=== PATIENT | female | born 1970 | race Caucasian/White ===

== ENCOUNTER 2022-04-13 08:58 | Day surgery (SDC) | payer BC ==
[~2022-04-13 08:58] MED LIST: Lactated Ringers 1,000 ML IV SCH; Propofol 200 MG/20 ML SDV ONE; Sodium Chloride 0.9% 10 ML Syringe FLUSH PRN; Sodium Chloride 0.9% 2.5 ML Syringe FLUSH PRN; Sodium Chloride 0.9% 20 ML SDV IV PRN
[2022-04-13] MEDS ORDERED: Midazolam 1 MG/ML 2 ML SDV ONE (10:41)
[2022-04-13] MEDS ORDERED: Propofol 200 MG/20 ML SDV ONE (11:18)
== END 2022-04-13 12:20 | disposition home or self-care (01) ==
LOC: MW.SDS 08:58
PROVIDERS: ATTEND Surgery
DX: Z12.11 Encounter for screening for malignant neoplasm of colon (principal); D01.3 Carcinoma in situ of anus and anal canal; K57.30 Diverticulosis of large intestine without perforation or abscess without bleeding; K44.9 Diaphragmatic hernia without obstruction or gangrene; G43.909 Migraine, unspecified, not intractable, without status migrainosus; F32.A Depression, unspecified; G89.29 Other chronic pain; Z88.2 Allergy status to sulfonamides; Z91.018 Allergy to other foods; Z79.899 Other long term (current) drug therapy; Z98.890 Other specified postprocedural states
CPT/HCPCS: 43239; 45380; J2250; J2704; J7120

== ENCOUNTER 2022-04-22 08:16 | Day surgery (SDC) | payer BC ==
[~2022-04-22 08:16] MED LIST changes: +Albuterol 0.083% 2.5 MG/3 ML Neb Soln NEB PRN; +HYDROmorphone 1 MG/ML Syringe IVPUSH PRN; -Lactated Ringers 1,000 ML IV SCH; +Metoclopramide 10 MG/2 ML SDV IVPUSH PRN; +Morphine 2 MG/ML SYRINGE IVPUSH PRN; +Naloxone 0.4 MG/ML SDV IVPUSH PRN; +Ondansetron 4 MG/2 ML SDV IVPUSH PRN; -Propofol 200 MG/20 ML SDV ONE; -Sodium Chloride 0.9% 10 ML Syringe FLUSH PRN; -Sodium Chloride 0.9% 2.5 ML Syringe FLUSH PRN; -Sodium Chloride 0.9% 20 ML SDV IV PRN; +fentaNYL 50 MCG/ML SDV IVPUSH PRN
[2022-04-22] MEDS ORDERED: Lactated Ringers 1,000 ML IV SCH (08:30)
[2022-04-22] MEDS ORDERED: Ondansetron 4 MG/2 ML SDV ONE (09:03)
[2022-04-22] MEDS ORDERED: Dexamethasone 4 MG/ML 5 ML MDV ONE (09:03)
[2022-04-22] MEDS ORDERED: Ketorolac 30 MG/ML SDV ONE (09:03)
[2022-04-22] MEDS ORDERED: Dexmedetomidine 200 MCG/2 ML SDV ONE (09:03)
[2022-04-22] MEDS ORDERED: Water For Injection, Sterile 20 ML ONE (09:03)
[2022-04-22] MEDS ORDERED: Lidocaine 2% 5 ML SDV ONE (09:03)
[2022-04-22] MEDS ORDERED: Magnesium Sulfate (4.06 MEQ/ML) 5 GM/10 ML SDV ONE (09:03)
[2022-04-22] MEDS ORDERED: fentaNYL 100 MCG/2 ML SDV ONE (09:06)
[2022-04-22] MEDS ORDERED: Propofol 200 MG/20 ML SDV ONE (09:06)
[2022-04-22] MEDS ORDERED: Bupivacaine 0.5% 30 ML SDV ONE (09:13)
[2022-04-22] MEDS ORDERED: Lidocaine 1% 20 ML MDV ONE (09:14)
[2022-04-22] MEDS ORDERED: cefOXitin 1 GM Vial ONE (09:49)
[2022-04-22] MEDS ORDERED: Lidocaine 2% 11 ML Jelly Filled Syringe ONE (10:24)
[2022-04-22] MEDS ORDERED: Phenylephrine 1% 10 MG/ML SDV ONE (10:55)
[2022-04-22] MEDS ORDERED: ePHEDrine 50 MG/ML SDV ONE (10:55)
== END 2022-04-22 11:50 | disposition home or self-care (01) ==
LOC: MW.SDS 08:16
PROVIDERS: ATTEND Surgery
DX: K62.82 Dysplasia of anus (principal); K44.9 Diaphragmatic hernia without obstruction or gangrene; K21.9 Gastro-esophageal reflux disease without esophagitis; M54.9 Dorsalgia, unspecified; M54.2 Cervicalgia; G89.29 Other chronic pain; F32.A Depression, unspecified; G43.909 Migraine, unspecified, not intractable, without status migrainosus; Z88.0 Allergy status to penicillin; Z79.899 Other long term (current) drug therapy; Z98.890 Other specified postprocedural states
CPT/HCPCS: 46255; A9270; J0131; J0694; J1100; J1885; J2370; J2405; J2704; J3010; J3475; J3490; J7120

== ENCOUNTER 2023-12-16 19:27 | Emergency (ER) | payer BC ==
[2023-12-16 19:44] LABS: BASOPHILS ABSOLUTE AUTO 0.03 K/uL (0.00-0.20); BASOPHILS PERCENT AUTO 0.2 % (0.0-1.0); EOSINOPHILS ABSOLUTE AUTO 0.07 K/uL (0.00-0.45); EOSINOPHILS PERCENT AUTO 0.5 % (0.0-6.0); HEMATOCRIT 38.7 % (37.0-47.0); HEMOGLOBIN 12.7 g/dL (12.0-16.0); IMMATURE GRAN ABSOLUTE AUTO 0.05 K/uL (0.00-0.05); IMMATURE GRAN PERCENT AUTO 0.3 % (0.0-0.4); LYMPHOCYTES ABSOLUTE AUTO 0.86 K/uL (1.00-4.80); LYMPHOCYTES PERCENT AUTO 5.9 % (24.0-44.0); MEAN CORPUSCULAR HEMOGLOBIN 29.7 pg (28.0-32.0); MEAN CORPUSCULAR HGB CONC 32.8 g/dL (32.0-36.0); MEAN CORPUSCULAR VOLUME 90.4 fL (83.0-99.0); MEAN PLATELET VOLUME 10.7 fL (9.4-12.3); MONOCYTES ABSOLUTE AUTO 0.91 K/uL (0.00-0.80); MONOCYTES PERCENT AUTO 6.2 % (0.0-8.0); NEUTROPHILS ABSOLUTE AUTO 12.67 K/uL (1.80-7.70); NEUTROPHILS PERCENT AUTO 86.9 % (41.0-71.0); PLATELET COUNT,PLT 299 K/uL (150-400); RED BLOOD CELL COUNT 4.28 M/uL (4.10-5.30); WHITE BLOOD CELL COUNT,WBC 14.59 K/uL (3.9-11.3)
[2023-12-16 20:01] LABS: CALCIUM 9.2 mg/dL (8.5-10.1); EST CRCL DRUG DOSING (CG) 61.61 mL/min; POTASSIUM,K 3.5 mmol/L (3.5-5.1)
[2023-12-16] MEDS: HYDROmorphone 0.5 MG/0.5 ML Syringe IVPUSH ONE (20:31)
== END 2023-12-16 21:45 | disposition home or self-care (01) ==
LOC: MW.ED 19:27
DX: S09.90XA Unspecified injury of head, initial encounter (principal); M25.511 Pain in right shoulder; M25.551 Pain in right hip; M79.651 Pain in right thigh; M25.561 Pain in right knee; Z79.899 Other long term (current) drug therapy; Z88.2 Allergy status to sulfonamides; Z88.8 Allergy status to other drugs, medicaments and biological substances; Z91.048 Other nonmedicinal substance allergy status; V80.010A Animal-rider injured by fall from or being thrown from horse in noncollision accident, initial encounter; Z75.8 Other problems related to medical facilities and other health care
CPT/HCPCS: 36415; 70450; 71045; 73030; 73501; 73552; 73562; 80048; 85025; 86850; 86900; 86901; 96374; 99284; J1171